=== PATIENT | female | born 2000 | race Caucasian/White ===

== ENCOUNTER 2023-08-14 09:13 | Emergency (ER) | payer SELFPAY ==
[2023-08-14 09:16] VITALS: BP 131/78; PULSE 86; RESP 18; TEMP 36.9; O2SAT 99; BMI 21.2
--- NOTE | 2023-08-14 09:58 | ED.FEMALEGU ---
HPI - Female Genitourinary General Chief complaint: Urogenital-Female Stated complaint: UTI (?) Time Seen by Provider: 08/14/23 09:42 Source: patient Mode of arrival: ambulatory Limitations: no limitations History of Present Illness HPI Narrative: 23 year old female with no significant pmhx presents to the ED today for evaluation of burning with urination x2 days. Endorses associated urinary frequency, urgency, and lower abdominal discomfort. She tried taking the AZO tablets at home without relief of pain. Reports taking home UTI test yesterday which returned positive for infection. LMP was 07/22/23 (24 days ago). She is currently sexually active with one partner. Engages in vaginal intercourse only. She is unsure if she could be . Denies fever, chills, rash, vaginal discharge, vaginal bleeding, flank pain, hematuria. Related Data Previous Rx's Medication Instructions Recorded cefuroxime axetil 250 mg tablet 250 mg PO BID 7 days #14 tabs 08/14/23 phenazopyridine 200 mg tablet 200 mg PO TID 6 doses #6 tabs 08/14/23 (Pyridium) Allergies Allergy/AdvReac Type Severity Reaction Status Date / Time No Known Allergies Allergy Verified 08/14/23 09:16 Review of Systems Review of Systems: Constitutional: No fever, chills, fatigue, night sweats, weight changes ENT/Mouth: No ear pain, hearing loss, nasal congestion, sinus pain, rhinorrhea, sore throat Eyes: No eye pain, swelling, redness, vision changes, discharge Cardio: No chest pain, palpitations, BECK, orthopnea, peripheral edema Pulm: No SOB, cough, sputum, wheezing, dyspnea, hemoptysis GI: No nausea, vomiting, hematemesis, abdominal pain, diarrhea, constipation, hematochezia, melena : No irregular bleeding, +dysuria, +frequency, +urgency, hesitancy, No hematuria, flank pain, urinary flow changes, urinary incontinence or retention MSK: No back pain, neck pain, joint pain, myalgias Skin: No lesions, rashes Neuro: No weakness, numbness, paresthesias, LOC, dizziness, headache All other systems reviewed and are negative. [facility] Past Medical History Attestation statement: The following information was validated with the patient. Source: old records reviewed and nursing notes reviewed Social History Social History Advance Directives: No Advance Directives Information Provided: No Patient : No Physical Exam Vital Signs: Vital Signs: Last Vital Signs Temp 98.5 F 08/14/23 09:16 Pulse 86 08/14/23 09:16 Resp 18 08/14/23 09:16 BP 131/78 08/14/23 09:16 Pulse Ox 99 08/14/23 09:16 O2 Del Method Room Air 08/14/23 09:16 BMI result Body Mass Index 21.2 Vital signs are stable, afebrile. Const: General: cooperative, healthy appearing, comfortable, no acute distress, alert and awake Nutritional Appearance: thin Orientation/consciousness: patient oriented x3 Limitations: no limitations HEENT: Head: Yes normal to inspection Eyes: General: appearance normal, both eyes and all related structures Neck: Neck: Yes normal visual inspection and Yes no lymphadenopathy Resp: Effort & Inspection: normal respiratory effort Auscultation: clear to auscultation bilaterally Cardio: Rate: regular rate Rhythm: regular rhythm GI: Other: + abdomen soft, nondistended, nontender to palpation, no rebound tenderness or guarding, normoactive bowel sounds x4. Bladder not palpable. No CVAT bilaterally. Inspection: Yes normal to inspection : Other: + pelvic exam deferred per patient. Prefers to self swab. General: Yes no CVA tenderness Back/Spine/Pelvis: Back: no CVA tenderness Skin: General skin exam: no rashes or lesions noted Neuro: General: patient oriented x3, gait normal and moves all extremities Extrem: General: Yes normal to inspection Course Course Course Narrative: 1105-- offered patient pelvic exam. States that she would prefer to self swab for Trichomonas and bacterial vaginosis. Dirty urine for gonorrhea and chlamydia have been sent to lab. I discussed starting prophylactic STI treatment today or if patient would prefer to begin treatment if results come back positive in a few days. Patient states that she would like to be treated at that time if results are positive. Awaiting UA and urine . Medical Decision Making Medical Decision Making MDM Narrative: 23 year old female with no significant pmhx presents to the ED today for evaluation of burning with urination x2 days. Vital signs stable, afebrile. Patient is nontoxic appearing and in no acute distress. Abdomen soft, nondistended, nontender to palpation. No rebound tenderness or guarding. Normoactive bowel sounds x4. Bladder not palpable. No CVAT bilaterally. Pelvic exam deferred per patient. Clinical concern for urinary tract infection, sexually transmitted infection, candidal infection, . Unlikely herpes, syphilis, nephrolithiasis, pyelonephritis, ovarian torsion, ovarian cyst or rupture. Plan for UA, STD testing and re-evaluation. Differential Diagnosis Differential Diagnoses: The differential diagnosis associated with the presentation includes As above. Admission/Observation Not indicated. Lab Data MDM Lab Attestation statement: I reviewed the patient's lab results. As above. Labs: Lab Results 08/14/23 08/14/23 08/14/23 Range/Units 10:08 10:45 11:37 Urine Color [place] Urine Appearance Hazy Urine pH 5.5 (5.0-9.0) Ur Specific [place] 1.010 (1.005-1.025) Urine Protein See Note (Neg-Trace) mg/dL Urine Glucose (UA) See Note (Negative) mg/dL Urine Ketones Negative (Negative) mg/dL Urine Blood Moderate (2+) H (Negative) Urine Nitrite See Note (Negative) Ur Leukocyte Esterase Moderate (2+) H (Negative) Urine RBC 11-20 H (0-2) /HPF Urine WBC 11-20 H (0-5) /HPF Ur Squamous Epith Cells 11-20 (0-2) /HPF Urine Bacteria None Seen (None Seen) Hyaline Casts 0-2 (0-2) /LPF Urine Test NEGATIVE (NEGATIVE) Chlam trachomat DNA PCR NOT DETECTED (Not Detect.) N.gonorrhoeae DNA (PCR) NOT DETECTED (Not Detect.) Bact Vag [facility] Interpr Cancelled 08/14/23 Range/Units 12:02 Urine Color Dark Yellow Urine Appearance Clear Urine pH 6.5 (5.0-9.0) Ur Specific [place] <= 1.005 (1.005-1.025) Urine Protein Negative (Neg-Trace) mg/dL Urine Glucose (UA) Negative (Negative) mg/dL Urine Ketones 15 (Negative) mg/dL Urine Blood Moderate (2+) H (Negative) Urine Nitrite Positive H (Negative) Ur Leukocyte Esterase Large (3+) H (Negative) Urine RBC 6-10 H (0-2) /HPF Urine WBC 11-20 (0-5) /HPF Ur Squamous Epith Cells 0-2 (0-2) /HPF Urine Bacteria None Seen (None Seen) Hyaline Casts 0-2 (0-2) /LPF Urine Test (NEGATIVE) Chlam trachomat DNA PCR (Not Detect.) N.gonorrhoeae DNA (PCR) (Not Detect.) Bact Vag [facility] Interpr External Record Review External record reviewed: Inpatient record Prescription Management I considered prescription management with: Pain Medication and Antibiotic Social Determinants Patient?s care significantly limited by Social Determinants of Health including: Other Social Determinant of Health Critical Care Time Critical Care Time Critical Care Time: No Discharge Plan Discharge Clinical Impression: Urinary tract infection Patient Disposition: Home, Self-Care Instructions: Urinary Tract Infection in Women (DC) Additional Instructions: Your urine today was positive for infection and negative for . You tested negative for gonorrhea and chlamydia. You will be contacted if you test positive for trichomonas or BV and you will be treated at that time. Ceftin is an antibiotic that has been sent to your pharmacy. Take this as prescribed and do not miss any doses. You must complete the entire course of antibiotics. If you do not, there is a risk of the infection coming back or worsening. Pyridium is an analgesic that can relieve the pain, burning, and discomfort caused by infection or irritation of the urinary tract. It is not an antibiotic and will not cure the infection itself. This has been sent to your pharmacy. Take this as needed for discomfort. Pyridium can cause your urine to turn a reddish orange color.? Follow up with your primary care provider as needed. If you develop a fever or new/ worsening symptoms call 911 or come back to the ER for further evaluation. On a cephalosporin antibiotic, softer bowel movements are to be expected. Call your provider if you move your bowels more than 4 times a day, your bowel movements are almost all liquid, or if he gets a rash. Prescriptions: New cefuroxime axetil 250 mg tablet 250 mg PO BID 7 Days Qty: 14 0RF phenazopyridine [Pyridium] 200 mg tablet 200 mg PO TID Qty: 6 0RF Referrals: Physician,Unknown J [Primary Care Provider] - Interventions: ED Discharge Assessment Last Done: 08/14/23 12:53 Discharge Date/Time: 08/14/23 12:53
[2023-08-14 10:20] LABS: UPreg QC Valid YES; Urine Pregnancy NEGATIVE (NEGATIVE)
[2023-08-14 10:52] LABS: Appearance Urine Hazy; Color Urine Orange; Leukocyte Esterase Urine Moderate (2+) (Negative); PH 5.5 (5.0-9.0); UMIC TRIGGER UA YES; Urine Blood Moderate (2+) (Negative); Urine Ketones Negative (Negative)
[2023-08-14 11:01] LABS: Bacteria Urine None Seen (None Seen); Hyaline Casts Urine 0-2 /LPF (0-2)
--- NOTE | 2023-08-14 11:10 | PC.NURSE ---
CLEAN CATCH AND DIRTY URINE SAMPLE BOTH SENT DOWN TO LAB. CALLED URINALYSIS TO INFORM THEM, SPECIMEN IS STILL SHOWING UNCOLLECTED.
[2023-08-14 12:10] LABS: Appearance Urine Clear; Color Urine Dark Yellow; Glucose Urine UA Negative (Negative); Leukocyte Esterase Urine Large (3+) (Negative); Nitrite Urine Positive (Negative); PH 6.5 (5.0-9.0); Specific Gravity - Urine <= 1.005 (1.005-1.025); UMIC TRIGGER UACC YES; Urine Blood Moderate (2+) (Negative); Urine Ketones 15 mg/dL (Negative); Urine Protein Negative (Neg-Trace)
[2023-08-14 12:12] LABS: CT PCR NOT DETECTED (Not Detect.); NG PCR NOT DETECTED (Not Detect.)
[2023-08-14 12:24] LABS: Bacteria Urine None Seen (None Seen); Hyaline Casts Urine 0-2 /LPF (0-2); Squamous Epithelial Cell Urine 0-2 /HPF (0-2); UACC Culture Trigger YES
[2023-08-15 15:12] LABS: BV Int Neg Control Negative (Negative)
[2023-08-15 15:13] LABS: BV Int Pos Control Positive (Positive)
== END 2023-08-14 12:53 | disposition home or self-care (01) ==
PROVIDERS: Physician Assistant Medical; Emergency Provider Student in an Organized Health Care Education/Training Program
DX: N39.0 Urinary tract infection, site not specified (principal); Z20.2 Contact with and (suspected) exposure to infections with a predominantly sexual mode of transmission
CPT/HCPCS: 0353U; 81001; 81025; 81513; 87086; 87088; 87186; 87480; 87510; 87660; 99283